=== PATIENT | female | born 1960 | race Caucasian/White ===

== ENCOUNTER 2018-05-10 07:43 | Emergency (ER) | payer OTHER ==
[2018-05-10 07:59] VITALS: BP 141/82
--- NOTE | 2018-05-10 08:35 | ED ---
Upper Extremity Pain - HPI Summary HPI Summary: Rt hand dominant pt here w/ Rt shoulder pain and limited ROM x 2-3 weeks. Noticed after waking from sleep one night and has been getting progressively worse since despite trying heat, ice, aleve, and icy hot. Denies numbness, tingling, weakness but has pain w/ flexion and abduction. 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 H/o arthritis in hands and knees. Denies neck pain. - History of Current Complaint Chief Complaint: UCUpperExtremity Stated Complaint: R SHOULDER PAIN Time Seen by Provider: 05/10/18 08:12 Hx Obtained From: Patient - Allergies/Home Medications Allergies/Adverse Reactions: Allergies Allergy/AdvReac Type Severity Reaction Status Date / Time Penicillins Allergy Rash Verified 05/10/18 07:59 Home Medications: Home Medications Lisinopril/HCTZ 20/12.5(NF) [Zestoretic 20/12.5(NF)] 1 tab PO DAILY 05/10/18 [ History Confirmed 05/10/18] PMH/Surg Hx/FS Hx/Imm Hx Previously Healthy: Yes Endocrine/Hematology History: Denies: Hx Anticoagulant Therapy, Hx Blood Disorders, Hx Diabetes Cardiovascular History: Reports: Hx Hypercholesterolemia, Hx Hypertension - CONTROLLED WITH MEDS, Other Cardiovascular Problems/Disorders - CHOLESTEROL CONTROL WITH MEDS Denies: Hx Congestive Heart Failure, Hx Myocardial Infarction GI History: Reports: Hx Gall Bladder Disease - gall bladder surgery, Hx Gastroesophageal Reflux Disease - ZANTAC PRN, Other GI Disorders - morbid obesity (BMI 55) History: Denies: Hx Renal Disease Sensory History: Reports: Hx Contacts or Glasses - READING GLASSES PRN Denies: Hx Hearing Aid Opthamlomology History: Reports: Hx Contacts or Glasses - READING GLASSES PRN - Surgical History Surgery Procedure, Year, and Place: 2008 COLONOSCOPY, [facility] [place]. 2011 LAPAROSCOPIC CHOLECYSTECTOMY, [facility]. 10/2015 INCISION AND DRAINAGE PERIRECTAL ABSCESS, [facility] [place] Hx Anesthesia Reactions: Yes - SEVERE N/V Infectious Disease History: No Infectious Disease History: Denies: Traveled Outside the [place] in Last 30 Days - Social History Occupation: Employed Full-time Lives: With Family Alcohol Use: Rare Hx Substance Use: No Substance Use Type: Reports: None Hx Tobacco Use: No Smoking Status (MU): Never Smoked Tobacco Review of Systems Constitutional: Negative Negative: Fever, Chills, Fatigue Cardiovascular: Negative Negative: Chest Pain Respiratory: Negative Negative: Shortness Of Breath, Cough Gastrointestinal: Negative Positive: no symptoms reported Positive: Arthralgia, Myalgia, Decreased ROM. Negative: Edema Skin: Negative Neurological: Negative Psychological: Normal All Other Systems Reviewed And Are Negative: Yes Physical Exam Triage Information Reviewed: Yes Vital Signs On Initial Exam: Initial Vitals Temp Pulse Resp BP Pulse Ox 98.2 F 81 18 141/82 96 05/10/18 07:52 05/10/18 07:52 05/10/18 07:52 05/10/18 07:52 05/10/18 07:52 Vital Signs Reviewed: Yes Appearance: Positive: Well-Appearing, No Pain Distress - appears comfortable at rest, Obese Skin: Positive: Warm, Skin Color Reflects Adequate Perfusion, Dry - no erythema , no ecchymosis, no lesions over affected area Head/Face: Positive: Normal Head/Face Inspection Eyes: Positive: EOMI ENT: Positive: Hearing grossly normal, Pharynx normal - mucosa moist Respiratory/Lung Sounds: Positive: Breath Sounds Present Cardiovascular: Positive: Pulses are Symmetrical in both Upper and Lower Extremities - no edema of Rt UE Musculoskeletal: Positive: Strength/ROM Intact - strength 5/5 in UE's however ROM is limited to 45 degrees abduction and flexion d/t pain (not weaknesS), Pain @ - supraspinatus and infraspinatus TTP near tendon sites Neurological: Positive: Normal, Sensory/Motor Intact, Alert, Oriented to Person Place, Time, CN Intact II-III Psychiatric: Positive: Normal Diagnostics - Vital Signs Vital Signs Temp Pulse Resp BP Pulse Ox 05/10/18 07:52 98.2 F 81 18 141/82 96 - Laboratory Lab Statement: Any lab studies that have been ordered have been reviewed, and results considered in the medical decision making process. Course/Dx - Course Course Of Treatment: Suspect rotator cuff injury but w/ h/o arthritis and fam h/ o cancer, will XR. XR: arthritis of the AC joint and along proximal humerus - no fx, no dislocation. Since she already takes naproxen, will add acetaminophen extra strength and PT. Offered sling but pt reports she prefers to have ROM and pain is worse w/ flexion/abduction. Will f/u w/ ortho this week - may benefit from cortisone injection along w/ PT. Seek medical attention sooner if danger s/sx present. NOTE: pt has HTN and reports it's high today d/ t discomfort and stress of prolonged shoulder issue. Feels relieved to have a new plan in place. Will f/u w/ PCP. - Diagnoses Provider Diagnoses: Osteoarthritis of right shoulder, Dysfunction of right rotator cuff Discharge - Sign-Out/Discharge Documenting (check all that apply): Patient Departure All imaging exams completed and their final reports reviewed: Yes - Discharge Plan Condition: Stable Disposition: HOME Patient Education Materials: Osteoarthritis (ED), Rotator Cuff Injury (ED) Referrals: Yves Montemayor MD [Primary Care Provider] - Devon Brooke MD [Medical Doctor] - Additional Instructions: Follow-up with orthopedics this week - call today for an appointment as you may benefit from a steroid injection. You may also contact physical therapy - take your XR results w/ you. [facility] is - call today to schedule an appointment. Start extra strength tylenol (see bottle for directions on dosing). *If you develop numbness, tingling, weakness, go to the ED - Billing Disposition and Condition Condition: STABLE Disposition: Home
--- NOTE | 2018-05-10 09:25 | RAD ---
INDICATION: Right shoulder pain. TECHNIQUE: 4 views of the right shoulder were obtained. FINDINGS: The bones are in normal alignment. No fracture is seen. There is moderate osteoarthritic change in the acromioclavicular joint. The glenohumeral joint space appears maintained. No significant abnormal calcifications are noted. IMPRESSION: MODERATE OSTEOARTHRITIC CHANGE IN THE ACROMIOCLAVICULAR JOINT.
== END 2018-05-10 09:33 | disposition home or self-care (01) ==
LOC: UCEAST 07:43
DX: M19.011 Primary osteoarthritis, right shoulder (principal); M75.101 Unspecified rotator cuff tear or rupture of right shoulder, not specified as traumatic; M19.042 Primary osteoarthritis, left hand; M19.041 Primary osteoarthritis, right hand; M17.0 Bilateral primary osteoarthritis of knee; E78.00 Pure hypercholesterolemia, unspecified; I10 Essential (primary) hypertension; K21.9 Gastro-esophageal reflux disease without esophagitis; E66.01 Morbid (severe) obesity due to excess calories; K82.9 Disease of gallbladder, unspecified; Z88.0 Allergy status to penicillin; Z68.43 Body mass index [BMI] 50.0-59.9, adult
CPT/HCPCS: 99211; G0463